=== PATIENT | female | born 1970 | race Hispanic/Latino ===

== ENCOUNTER 2017-03-27 06:43 | Emergency (ER) | payer OTHER ==
[2017-03-27 06:58] VITALS: BP 134/79; PULSE 88; RESP 16; TEMP 97; O2SAT 97
--- NOTE | 2017-03-27 07:39 | ED PDOC ---
Upper Extremity Pain/Injury Time Seen by Provider: 03/27/17 07:10 Chief Complaint (Nursing): Finger,Hand,&Wrist History Per: Patient (states that cut her finger with a razor blade by accident. she reached into her cosmetic bag last night and had forgotten that there was a razor in it. She stopped the bleeding herself with pressure dressings and went out with her friends. Then early this morning she felt pain and decided to come in for evaluation. There is no active bleeding at present.) History/Exam Limitations: no limitations Onset/Duration Of Symptoms: Hrs (12) Past Medical History Reviewed: Historical Data, Nursing Documentation, Vital Signs Vital Signs: Last Vital Signs Temp 97.0 F L 03/27/17 06:53 Pulse 88 03/27/17 06:53 Resp 16 03/27/17 06:53 BP 134/79 03/27/17 06:53 Pulse Ox 97 03/27/17 06:53 - Medical History PMH: No Chronic Diseases - Surgical History Surgical History: Appendectomy - Family History Family History: States: Unknown Family Hx - Living Arrangements Living Arrangements: With Family - Social History Current smoker - smoking cessation education provided: No Alcohol: Social - Immunization History Hx Tetanus Toxoid Vaccination: No - Allergies Allergies/Adverse Reactions: Allergies Allergy/AdvReac Type Severity Reaction Status Date / Time No Known Allergies Allergy Verified 03/27/17 06:58 Review of Systems ROS Statement: Except As Marked, All Systems Reviewed And Found Negative Constitutional: Negative for: Fever, Chills Skin: Positive for: Other (superficial laceration - flap like at the lip of the finger near the edge of the nail. no active bleeding, bruising or swelling.) Physical Exam - Reviewed Nursing Documentation Reviewed: Yes Vital Signs Reviewed: Yes - Physical Exam Appears: Positive for: Well, Non-toxic, No Acute Distress Head Exam: Positive for: ATRAUMATIC, NORMAL INSPECTION, NORMOCEPHALIC Skin: Positive for: Normal Color, Warm, DRY Eye Exam: Positive for: Normal appearance Neck: Positive for: Normal Extremity: Positive for: Normal ROM, Other (superficial laceration - flap like at the lip of the finger near the edge of the nail. no active bleeding, bruising or swelling.) Neurologic/Psych: Positive for: Alert, Oriented - ECG O2 Sat by Pulse Oximetry: 97 Procedures - Laceration/Wound Repair Finger Wound Length (cm): 0.5 Wound's Depth, Shape: superficial, flap Wound Explored: clean Betadine Prep?: No Wound Repaired With: Skin adhesive Layer Closure?: No Wound Complexity: Simple Sterile Dressing Applied?: Yes Splint Applied?: No Sling Applied?: No Disposition - Clinical Impression Clinical Impression: Laceration - Patient ED Disposition Is Patient to be Admitted: No Doctor Will See Patient In The: Office Counseled Patient/Family Regarding: Diagnosis, Need For Followup - Disposition Disposition: Routine/Home Disposition Time: 07:42 Condition: STABLE Additional Instructions: Tetanus (Tdap) Booster given 03/27/2017 - please have your physician document this in your health records. Instructions: Skin Adhesive Care (ED) Forms: [facility] (Yakut) - POA Present On Arrival: Falls Or Trauma
== END 2017-03-27 08:26 | disposition home or self-care (01) ==
LOC: H.ER 06:43
DX: S61.219A Laceration without foreign body of unspecified finger without damage to nail, initial encounter (principal); W26.8XXA Contact with other sharp object(s), not elsewhere classified, initial encounter; Z23 Encounter for immunization